=== PATIENT | female | born 1950 | race American Indian/Alaskan Native ===

== ENCOUNTER 2016-08-12 08:21 | Outpatient (CLI) | payer MEDICARE, OTHER ==
--- NOTE | 2016-08-12 09:21 | XRay Report ---
CHEST TWO VIEWS: 08/12/16 08:21:00 CLINICAL: Chest pain. COMPARISON: None FINDINGS: Normal heart and pulmonary vasculature. The lungs are normally expanded and clear.Degenerative change in the spine. IMPRESSION: No acute cardiopulmonary process.
--- NOTE | 2016-08-12 09:28 | Cat Scan Report ---
CT HEAD WITHOUT CONTRAST: HISTORY: Head ache. Serial contiguous axial images were obtained through the cranium. Intravenous contrast material was not administered. The ventricles are normal in size and appearance. There is no mass effect or midline shift. No areas of abnormally increased or decreased attenuation are seen. No mass lesion is seen. The mastoid air cells and visualized portions of the sinuses are normal. IMPRESSION: Cranial CT scan within normal limits.
== END 2016-08-12 08:22 | disposition home or self-care (01) ==
LOC: CT 08:21
PROVIDERS: ATTEND Family Medicine Adult Medicine
DX: R07.9 Chest pain, unspecified (principal); R51 Headache; R42 Dizziness and giddiness; M47.899 Other spondylosis, site unspecified
CPT/HCPCS: 70450; 71020

== ENCOUNTER 2017-11-04 08:55 | Outpatient (CLI) | payer MEDICARE, OTHER ==
--- NOTE | 2017-11-05 10:20 | Mammography Report ---
BILATERAL DIGITAL SCREENING MAMMOGRAM with CAD: 11/04/17 08:55:00 CLINICAL: Routine screening. COMPARISON:01/26/14 FINDINGS: The breasts are almost entirely fatty. No mass, architectural distortion or suspicious calcifications. IMPRESSION: No mammographic evidence of malignancy. BI-RADS CATEGORY: 1 - - Negative RECOMMENDATION: Routine mammographic screening in one year. COMMENT: Patient follow-up letters are generated by our [employer] application.
== END 2017-11-04 08:56 | disposition home or self-care (01) ==
LOC: MAMMO 08:55
PROVIDERS: ATTEND Family Medicine Adult Medicine
DX: Z12.31 Encounter for screening mammogram for malignant neoplasm of breast (principal)
CPT/HCPCS: 77067